=== PATIENT | female | born 1970 ===

== ENCOUNTER 2021-02-04 23:29 | Emergency (ER) | payer MEDICAID ==
[~2021-02-04] VITALS: Ht 160 cm; Wt 65.8 kg
[2021-02-04] MEDS ORDERED: CLIN300C12 PO (23:52)
--- NOTE | 2021-02-04 23:55 | NUR ---
Patient discharged to home in stable condition. Written and verbal after care instructions given. Patient verbalizes understanding of instructions. Stressed follow up or return to ER for worsening s/s.
[2021-02-05 00:02] VITALS: BP 146/79
== END 2021-02-05 00:03 | disposition home or self-care (01) ==
LOC: ER 23:33
DX: R22.2 Localized swelling, mass and lump, trunk (principal); F17.210 Nicotine dependence, cigarettes, uncomplicated; F20.9 Schizophrenia, unspecified; R03.0 Elevated blood-pressure reading, without diagnosis of hypertension; Z85.830 Personal history of malignant neoplasm of bone; Z88.0 Allergy status to penicillin; Z88.8 Allergy status to other drugs, medicaments and biological substances
CPT/HCPCS: A4663